=== PATIENT | female | born 1975 | race Asian ===

== ENCOUNTER 2018-10-29 17:00 | Emergency (ER) | payer OTHER ==
[~2018-10-29] VITALS: Ht 167.6 cm; Wt 65.3 kg
[2018-10-29 17:13] VITALS: BP_SYST 127
[2018-10-29] MEDS ORDERED: IBUPROFEN 600 MG TABLET PO ONE (17:45)
[2018-10-29 18:30] VITALS: BP_SYST 122
== END 2018-10-29 18:30 | disposition home or self-care (01) ==
LOC: SED 17:00
DX: M77.8 Other enthesopathies, not elsewhere classified (principal)
CPT/HCPCS: 99283